=== PATIENT | male | born 1960 | race Caucasian/White ===

== ENCOUNTER 2017-10-01 16:02 | Emergency (ER) | payer OTHER ==
[~2017-10-01] VITALS: Ht 175.3 cm; Wt 78.5 kg
[2017-10-01 16:08] VITALS: Ht 175.3 cm; Wt 78.5 kg
[2017-10-01 18:06] VITALS: BP 120/72
== END 2017-10-01 18:06 | disposition home or self-care (01) ==
LOC: ED 16:02
DX: S20.429A Blister (nonthermal) of unspecified back wall of thorax, initial encounter (principal); G89.29 Other chronic pain; X58.XXXA Exposure to other specified factors, initial encounter; Y93.89 Activity, other specified; Y92.89 Other specified places as the place of occurrence of the external cause; Y99.8 Other external cause status
CPT/HCPCS: 90715

== ENCOUNTER 2020-02-27 11:14 | Emergency (ER) | payer OTHER ==
[~2020-02-27] VITALS: Ht 175.3 cm; Wt 68.0 kg
[2020-02-27 11:27] VITALS: Ht 175.3 cm; Wt 68.0 kg
[2020-02-27 15:08] VITALS: BP 111/79
== END 2020-02-27 15:08 | disposition home or self-care (01) ==
LOC: ED 11:14
DX: M79.605 Pain in left leg (principal); M79.604 Pain in right leg; G89.29 Other chronic pain; E11.40 Type 2 diabetes mellitus with diabetic neuropathy, unspecified; Z98.890 Other specified postprocedural states
CPT/HCPCS: J3010